=== PATIENT | female | born 1995 | race Caucasian/White ===

== ENCOUNTER → 2017-12-19 11:30 | Outpatient (CLI) | payer OTHER, SELFPAY ==
--- NOTE | 2017-12-19 11:34 | US_ITS ---
STUDY: ABDOMINAL ULTRASOUND REASON FOR EXAM: Female, 22 years old. Abdominal pain. TECHNIQUE: Transabdominal ultrasound was performed with real-time and static watson scale imaging. TECHNICAL QUALITY: Limited by bowel gas. COMPARISON: None. FINDINGS: Liver: The liver measures 17.6 cm. There is increased echogenicity consistent with fatty infiltration. The bile ducts are within normal limits. There is hepatic color flow. The direction of portal flow is hepatopetal. There is no demonstrated mass lesion. Gallbladder: Normal distended gallbladder. The gallbladder wall measures 3 mm. There is a negative sonographic Vegas's sign. There is no pericholecystic fluid. There are no gallstones. Common Bile Duct (C.B.D.): The common bile duct measures 3 mm. Pancreas: Not visualized Spleen: The spleen is enlarged, measuring 13.4 cm. Right Kidney: Normal size of the right kidney. The right kidney measures 11.6 cm. Normal renal cortex. There is no demonstrated renal mass or cyst. There is no right hydronephrosis. Left Kidney: Normal size of the left kidney. The left kidney measures 12.9 cm. Normal renal cortex. There is no demonstrated renal mass or cyst. There is no left hydronephrosis. Aorta: Not visualized. I.V.C.: The IVC is patent. There is no ascites. US/Abdomen Complete IMPRESSION: Fatty liver. No focal hepatic masses identified. Normal gallbladder. Splenomegaly. Normal kidneys. No hydronephrosis. Electronically Signed: Andrew Jonesmelanie, at 14:33 EDT Tel , Service support ,
--- NOTE | 2017-12-19 11:36 | US_ITS ---
STUDY: ULTRASOUND OF THE FEMALE PELVIS - COMPLETE REASON FOR EXAM: Female, 22 years old. Right lower quadrant pain LMP: TECHNIQUE: Transabdominal TECHNICAL QUALITY: Adequate. COMPARISON: None. FINDINGS: The uterus is anteverted and is in a midline position. The uterus measures 9.2 x 4.1 x 2.7 cm. Normal uterine cervix. The endometrium measures 10 mm in thickness, and is hyperechoic. There is no demonstrated endometrial mass. There is no demonstrated myometrial mass. I.U.D. - The patient does not have an I.U.D. The right ovary is visualized. The right ovary measures 4.7 x 2.4 x 4.1 cm. There is no right ovarian cyst or ovarian mass. There is no visualized right adnexal mass or complex lesion. There is normal arterial and normal venous vascularity. The left ovary is visualized. The left ovary measures 3.4 x 2.3 x 1.9 cm. There is no left ovarian cyst or ovarian mass. There is no visualized left adnexal mass or complex lesion. There is normal arterial and normal venous vascularity. There is no fluid in the cul-de-sac. The pre void volume of the bladder was 384 ml. Polycystic ovary disease: No. US/Pelvic (Non ) IMPRESSION: Normal female pelvis. No visualized significant free fluid. No torsion. Electronically Signed: Nia Cruz MD at 14:31 EDT Tel , Service support ,
[2017-12-19 11:46] LABS: Bacteria 0 SEEN /hpf (None Seen); Red Blood Cells-Urine 0 SEEN /hpf (0-5)
[2017-12-19 12:48] LABS: Color, Urine Yellow (Yellow); Glucose, Dipstick Normal (Normal); Ketone-Dipstick 5 mg/dl (Negative); Leukocyte Esterase-Dipstick 500 /ul (Negative); Nitrite-Dipstick Negative (Negative); Occult Blood-Urine 10 /ul (Negative); Protein-Dipstick 30 mg/dl (Negative); Urine Clarity Sl. Cloudy (Clear); Urine Urobilinogen Normal (Normal)
[2017-12-19 12:51] LABS: Urine Bilirubin Dipstick 1 mg/dL (Negative)
[2017-12-19 12:55] LABS: Mucous, Urine 1+ /hpf (<or=2+); Squamous Epithelial Cells - UA 10-25 SEEN /hpf (5-10); White Blood Cells 5-10 SEEN /hpf (0-5)
[2017-12-21 09:55] LABS: HIV - WCH Non-Reactive (Nonreactive)
[2017-12-25 03:45] LABS: Rapid Plasmin Reagin (RPR) NONREACTIVE (NONREACTIVE)
== END ==
PROVIDERS: Family Provider Pediatrics; PCP Pediatrics; Visit Provider Pediatrics
DX: R10.31 Right lower quadrant pain (principal); Z72.51 High risk heterosexual behavior
CPT/HCPCS: 36415; 76700; 76856; 81001; 86592; 86703; 87086; 87088; 93976

== ENCOUNTER 2019-11-25 03:12 | Emergency (ER) | payer SELFPAY ==
[2019-11-25 03:13] VITALS: BP 151/83; PULSE 125; RESP 18; TEMP 36.8; O2SAT 98; BMI 31.1
--- NOTE | 2019-11-25 03:19 | ED.VISSUMM ---
- ER Visit Summary Date of Service: 11/25/19 Chief Complaint: Fever, vomiting History of Present Illness: The patient is a 24 F who has fever, vomiting, sore throat, stuffy nose, cough. This all started about 36 hours ago. She feels achy as well. She feels like she may have the flu. She is allergic to the flu shot so she did not get it. She has been trying Tylenol and NyQuil without any relief. No sick contacts. No travel history. No known exposures. Physical Examination: Vital signs reviewed. HEENT exam unremarkable. Heart is tachycardic and regular rhythm without murmurs. Lungs are clear to auscultation. Abdomen is soft and nontender. Extremities reveal no edema. Skin exam normal. Neurologic exam normal. Test Results: Flu testing is negative Emergency Department Course and Treatment: Her rapid flu testing is negative. However, due to her symptoms. 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 Patient will be discharged with Tamiflu prescription. She will continue [id number] medications at home. Treatment Plan: [] Disposition: Discharge Impression: Influenza This note was generated with be[employer] dictation software. It may contain incorrect words, spelling, and punctuation that were not noted in review of the chart prior to signing ED Disposition - Plan for ED Patient: Disposition: Home or Assisted Living Instructions: INFLUENZA (Adult) Prescriptions: Oseltamivir Phosphate [Tamiflu] 75 mg PO BID #9 cap Transmission Status: Pending to [facility] Referrals: Judy Hawkins MD [Primary Care Provider] -
[2019-11-25] MEDS: Oseltamivir Phosphate 75 MG Capsule PO (04:02)
[2019-11-25] MEDS: Ondansetron ODT 4 MG Tablet 8 MG PO (04:07)
[2019-11-25 04:08] VITALS: BP 136/86; PULSE 90; RESP 16; O2SAT 95
== END 2019-11-25 04:09 | disposition home or self-care (01) ==
LOC: ED 04:03
PROVIDERS: Emergency Provider Emergency Medicine; PCP Pediatrics
DX: J11.1 Influenza due to unidentified influenza virus with other respiratory manifestations (principal); Z87.442 Personal history of urinary calculi
CPT/HCPCS: 87804; 99283

== ENCOUNTER 2020-03-27 09:16 | Emergency (ER) | payer OTHER, SELFPAY ==
[2020-03-27 09:18] VITALS: BP 146/82; PULSE 95; RESP 16; TEMP 36.7; BMI 28.0
--- NOTE | 2020-03-27 09:38 | CT_ITS ---
STUDY: CT ABDOMEN AND PELVIS WITH CONTRAST REASON FOR EXAM: Female, 25 years old. RLQ PAIN, N/V RADIATION DOSAGE (If Supplied By Facility): CTDIvol = ( 18.83 ) mGy, DLP = ( 1141.93 ) mGycm TECHNIQUE: Transaxial images were obtained from the dome of the diaphragm to the symphysis pubis without oral contrast. IV 100mL Isovue-300 was administered. Sagittal and coronal images were reconstructed. Individualized dose optimization techniques were used for this CT. COMPARISON: None. FINDINGS: The visualized lung bases are unremarkable. The visualized portions of the heart are within normal limits. Normal liver. Normal gallbladder and extrahepatic biliary system. Borderline splenomegaly. Normal pancreas. Normal bilateral adrenal glands. Normal right kidney. Normal left kidney. Normal visualized stomach. Normal small intestine. Normal colon. The appendix is visualized and appears normal. Small lymph nodes are seen in the mesenteric fat in the right lower quadrant suggestive of mesenteric lymphadenitis. Normal abdominal aorta. Normal inferior vena cava. Normal retroperitoneum. Normal urinary bladder. Small follicles are seen in both ovaries. Normal abdominal wall. Normal osseous structures. CT/Abdomen/Pelvis W IV Cont ONLY IMPRESSION: Findings suggestive of mesenteric lymphadenitis in the right lower quadrant. Electronically Signed: Mian Alicea, at 11:57 EDT , Service support ,
--- NOTE | 2020-03-27 09:39 | ED.DCSUM_ITS ---
History of Present Illness Chief Complaint: Abd Pain Informant: Patient Narrative: Patient is a 25-year-old previously healthy female who presents to the emergency department for right lower quadrant pain which started last night. She states that it intermittently gets worse. No radiation of the pain except mildly to the left side of her lower quadrant. Currently rates it as a 6 out of 10. She describes as a sharp sensation. She has been nauseous and vomiting. She states she threw up 9 times. She has had mild diarrhea as well. Denies any fevers or chills. No previous abdominal surgeries. Denies any urinary symptoms. No vaginal bleeding or discharge. No chest pain or shortness of breath. No known relieving factors. Pushing on the abdomen makes her symptoms worse. She did try taking Zofran for her nausea which did not help. She denies smoking, admits to occasional alcohol use. No drug abuse. Past Medical History - Allergies and Home Meds Allergies/Adverse Reactions: Allergies morphine Adverse Reaction (Verified 03/27/20 09:20) Hives Primary Care Physician: Judy Hawkins MD [Primary Care Provider] - 2 Days Prior records reviewed: Yes Past Medical History: - - Previous kidney stones Smoking Status: Never smoker Alcohol: Rare Drugs: None Review of Systems All systems negative except as indicated General: Denies: Chills, Fever, Sweats Eyes: Denies: Visual changes - bilaterally, Diplopia ENT: Denies: Rhinorrhea, Sore throat Cardiovascular: Denies: Chest pain, Palpitations Respiratory: Denies: Dyspnea, Cough, Dyspnea on exertion Gastrointestinal: Reports: Abdominal pain, Nausea, Vomiting. Denies: Diarrhea, Melena, Hematochezia Genitourinary: Denies: Dysuria, Hematuria, Frequency Musculoskeletal: Denies: Back pain, Extremity Pain Skin: Denies: Rash, Wounds Neurological: Denies: Headache, Weakness, Numbness Physical Exam Vital Signs/Narrative: Vital Signs Temp Pulse Resp BP 03/27/20 09:18 98.1 F 95 16 146/82 H Inital Vital Signs reviewed: Yes General: Well nourished, Well developed, No Acute Distress Head: Normocephalic, Atraumatic Eyes: Perrl, EOMI ENT: Moist mucous membranes, No rhinorrhea Neck: Supple, Nontender Cardiovascular: Regular rate, Regular rhythm, No murmurs Respiratory: No distress, CTA bilaterally, Chest nontender Abdomen: Soft, Nontender, Nondistended, Normal bowel sounds, Tender - Worse in the right lower quadrant but some in the right upper quadrant and epigastric region.. Negative for: Guarding, Rebound tenderness, Psoas sign Back: Nontender, Normal Inspection Extremities: Nontender, No edema Skin: Normal color, No rash Neurological: Alert, Oriented x3, Cranial nerves II-XII grossly intact, Normal Strength, Normal Sensation Psychological: Normal affect, Normal Mood Diagnostic/Tx/Re-eval - Medical Decision Making Patient presents to the emergency department for abdominal pain and nausea/vomiting. Upon arrival to the emergency department vital signs within normal limits. Will check basic lab work along with CT scan of the abdomen/pelvis to evaluate for appendicitis. Lab work did not reveal any significant acute abnormality. CT scan showed mesenteric adenitis. She otherwise is nontoxic-appearing. Were able to get her pain manageable with Toradol. She was still having some nausea so we treated her with Zofran and Phenergan. Will discharge home with antiemetic and Naprosyn for symptomatic treatment at home. If she develops any worsening systemic symptoms she is to return to the emerge department immediately. She otherwise needs to follow-up with her PCP. She understands and is agreeable with this plan. ED Disposition - Plan for ED Patient: Disposition: Home or Assisted Living Diagnosis: Mesenteric lymphadenitis Instructions: ED Adenitis Mesenteric Prescriptions: Naproxen [Naprosyn] 500 mg PO BID PRN #20 tab Transmission Status: Received by [facility] Ondansetron [Zofran Odt] 4 mg PO Q8H PRN PRN #10 tab PRN Reason: Nausea Transmission Status: Received by [facility] Referrals: Judy Hawkins MD [Primary Care Provider] - 2 Days
[2020-03-27 10:03] LABS: Absolute Lymphocyte Count 2.19 X10^3/uL (0.83-4.51); Absolute Neutrophil Count 6.9 X10^3/uL (2.0-7.7); Basophil# 0.03 X10^3/uL; Basophil% 0.3 % (0-1); Eosinophil# 0.35 X10^3/uL; Eosinophils% 3.4 % (0-5); Hematocrit 38.3 % (37-47); Hemoglobin 12.3 g/dL (12.0-15.0); Lymphocyte # 2.19 X10^3/ul (4.0); Lymphocyte % 21.5 % (19-41); Mean Corp Hgb Conc 32.1 g/dL (32-36); Mean Corpuscular Hgb 27.3 pg (27.0-32.0); Mean Corpuscular Volume 85.1 fL (81-99); Mean Platelet Vol. 11.4 fl (6.2-12.0); Monocyte# 0.67 X10^3/uL; Monocyte% 6.6 % (0-10); NRBC Flagged by Analyzer 0 % (0-5); Neutrophil # 6.92 X10^3/uL (2.7-7.7); Neutrophil % 67.9 % (47-70); Platelet Count 220 K/mm3 (150-450); RBC Distribution Width CV 12.8 % (11.6-14.6); RBC Distribution Width SD 38.7 fl (35.1-43.9); White Blood Count 10.2 K/mm3 (4.4-11.0)
[2020-03-27 10:24] LABS: ALB/GLOB Ratio 1.1 RATIO (0.9-2.4); AST(SGOT) 24 U/L (15-37); Alanine Aminotransfer ALT/SGPT 32 U/L (13-56); Alkaline Phosphatase 47 U/L (45-117); Anion Gap 6 (5-15); BUN 16 mg/dL (7-18); BUN/Creat Ratio 19.2 RATIO (10-20); Calcium,Total 9.2 mg/dL (8.5-10.1); Chloride 106 mmol/L (98-107); Creatinine, Serum 0.83 mg/dL (0.55-1.02); EST Glomerular Filtration Rate 89 mL/min (>60); Est Glom Filt Rate - Afr Amer 108 mL/min (>60); Estimated Creatinine Clearance 109.23 ml/min; Globulin 3.6 g/dL (2.2-4.2); Glucose 93 mg/dL (74-106); Lipase 100 U/L (73-393); Potassium 3.7 mmol/L (3.5-5.1); Protein, Total 7.6 g/dL (6.4-8.2); Sodium Level 138 mmol/L (136-145)
[2020-03-27 11:04] LABS: Mucous, Urine 0 SEEN /hpf (<or=2+)
[2020-03-27 11:06] LABS: Color, Urine Straw (Yellow); Glucose, Dipstick Normal (Normal); Internal QC Validated? YES +Cl - CLEAR BKGD; Ketone-Dipstick Negative (Negative); Leukocyte Esterase-Dipstick 100 /ul (Negative); Nitrite-Dipstick Negative (Negative); Occult Blood-Urine Negative /ul (Negative); Protein-Dipstick Negative (Negative); Urine Bilirubin Dipstick Negative (Negative); Urine Clarity Clear (Clear); Urine Urobilinogen Normal (Normal)
[2020-03-27 11:10] LABS: Pregnancy, Urine Negative Negative
[2020-03-27 11:14] LABS: White Blood Cells 5-10 SEEN /hpf (0-5)
[2020-03-27 11:15] LABS: Bacteria RARE /hpf (None Seen); Red Blood Cells-Urine 0-5 SEEN /hpf (0-5); Squamous Epithelial Cells - UA 0-5 SEEN /hpf (5-10)
[2020-03-27] MEDS: proMETHazine 25 MG/ML Syringe 12.5 MG IM (12:49)
[2020-03-27 12:51] VITALS: RESP 18
== END 2020-03-27 13:43 | disposition home or self-care (01) ==
PROVIDERS: Emergency Provider Emergency Medicine; PCP Pediatrics
DX: I88.0 Nonspecific mesenteric lymphadenitis (principal); Z87.442 Personal history of urinary calculi
CPT/HCPCS: 74177; 80053; 81001; 81025; 83690; 85025; 96360; 96372; 99285; J7040; Q9967; A4216